=== PATIENT | male | born 1940 | race Caucasian/White ===

== ENCOUNTER → 2018-10-28 | Outpatient (CLI) | payer OTHER ==
[2016-09-17 15:00] VITALS: BP 112/73
[~2018-10-28] MED LIST: ASPI-612 PO; ATOR20TA58 PO; CETI10TA22 PO; CLOP75TA PO; LISI10TA2 PO
--- NOTE | 2018-10-28 13:41 | KCIC ---
EXAM: MRI left shoulder DATE: 10/28/2018 11:45 AM COMPARISON: 10/22/2018 INDICATION: Left shoulder pain TECHNIQUE: Multiplanar, multisequence MRI of the left shoulder was performed without contrast. FINDINGS: Mild acromioclavicular joint degenerative change. Prominent inferior acromial enthesophyte is seen. Type I acromion. Cysts Subacromial subdeltoid bursal distention likely bursitis. No glenohumeral joint effusion. Shallow bursal sided tear of the supraspinatus tendon measuring approximately 25% tendon thickness, measures 8 mm in AP dimension. Mild supraspinatus tendinosis. Normal muscle signal and bulk, without fatty atrophy. The extra articular long head biceps tendon is seen within the bicipital groove. Intra-articular segment of the long head biceps tendon is mildly thickened and increased signal consistent with mild tendinosis. Evaluation for labral tear limited on this arthrographic study. No evidence for fracture or AVN. IMPRESSION: 1. Partial-thickness bursal sided tear of the supraspinatus tendon involving approximately 25% tendon thickness, measuring approximately 8 mm in AP dimension. 2. Mild laterally downsloping distal acromion with prominent inferior acromial enthesophyte. 3. Prominent subacromial-subdeltoid bursal distention, bursitis. Electronically signed by: Luis Silva MD (10/28/2018 1:36 PM) [id number]
== END | disposition home or self-care (01) ==
LOC: KCIC MRI 10:50
PROVIDERS: ATTEND Physician Assistant Medical
DX: M75.102 Unspecified rotator cuff tear or rupture of left shoulder, not specified as traumatic (principal); M75.52 Bursitis of left shoulder; M75.82 Other shoulder lesions, left shoulder; M85.612 Other cyst of bone, left shoulder
CPT/HCPCS: 73221